=== PATIENT | female | born 1950 | race Caucasian/White ===

== ENCOUNTER 2017-04-28 13:26 | Outpatient (CLI) | payer MEDICARE, BC ==
[~2017-04-28] VITALS: Ht 161.3 cm; Wt 77.3 kg
--- NOTE | ~2017-04-28 | HP ---
PATIENT: DECLAN COHEN MEDICAL RECORD: [id number] ACCOUNT: [id number] LOCATION:CLARE : 51 ADMISSION DATE: 04/28/17 HISTORY AND PHYSICAL EXAMINATION PROBLEM LIST: 1. Unstable angina. 2. Coronary disease. 3. Previous coronary artery bypass grafting surgery. 4. Status post multivessel PTCA and stent. 5. Hypertension. 6. Hyperlipidemia. HISTORY: The patient is well-known to us with a past history of coronary disease, multivessel PTCA and stent in the past as well as coronary artery bypass grafting surgery. She presents with two weeks of increasing chest pain, chest discomfort, angina. She, as well, has a upcoming knee surgery within the next month. She wants to limit her dual antiplatelet therapy to proceed with the knee surgery. PHYSICAL EXAMINATION: HEAD, EYES, EARS, NOSE, AND THROAT: Benign. NECK: Supple. No jugular venous distention. Carotid upstroke plus two bilaterally without bruits. LUNGS: Overall clear to auscultation and percussion. HEART: Regular. Normal S1, normal S2. No S3, no S4. No murmurs. BONES, JOINTS, EXTREMITIES: No clubbing, cyanosis, or edema. IMPRESSION AND PLAN: Unstable angina, most likely she has recurrent hemodynamically significant coronary disease. We will proceed with coronary angiography. Further care dependent upon findings of angiography. THELMA MORRISON MD CC: [id number] DICTATION DATE: 04/29/171117 PLANER MILL GRADER: TC 05/03/17 1115 DEP CLI 04/29/17 [address] [id number] [place] [address]
--- NOTE | ~2017-04-28 | PRO ---
PATIENT:DECLAN COHEN MEDICAL RECORD: [id number] : 52 LOCATION:D.OPS ADMISSION DATE: 04/28/17 PROCEDURE PERFORMED BY: THELMA MORRISON MD PROCEDURES: 1. PTCA and stent of the vein graft to the left circumflex. 2. Left heart catheterization. 3. Selective coronary angiography. 4. Left ventriculogram. 5. Vein graft angiography. 6. Intravascular ultrasound. INDICATIONS: Unstable angina. PROCEDURE IN DETAIL: After informed consent was obtained and after detailed Explanation of risks, benefits as well as alternative therapies, the patient Elected to proceed with angiogram and angioplasty. The right femoral area was Prepped and draped in normal sterile fashion. The right femoral artery was Cannulated via modified Seldinger technique with placement of 6-Yi sheath. All catheters exchanged through this sheath. FINDINGS: Selective coronary angiography: 1. Left main showed no significant angiographic disease. 2. Left anterior descending artery has previously placed stents with no significant in-stent restenosis. No disease ___ of the LAD or its branches. 3. Left circumflex is totally occluded in the proximal vessels. 4. Right coronary artery is widely patent. 5. Vein graft to the left circumflex is patent however, there is greater than 80% stenosis in the midshaft confirmed by intravascular ultrasound. PTCA STENT OF THE LEFT CIRCUMFLEX: The stent used was a 4.0 x 14 millimeter BioFreedom stent, this was a 4.0 vessel. The lesion was 10 millimeters long and there was SIN grade 3 flow before and after the intervention, 0% residual stenosis after the intervention. OVERALL IMPRESSION: Successful PTCA and stenting of the vein graft to the left circumflex going from 80% initial stenosis to 0% residual stenosis. THELMA MORRISON MD CC: [id number] DICTATION DATE: 04/30/171818 STORE PROMOTER: TC 05/03/171818 DEP CLI 04/29/17 [place] [id number]
--- NOTE | ~2017-04-28 | HEMODYNAMI ---
PATIENT:DECLAN COHEN MEDICAL RECORD: [id number] : 52 LOCATION:[facility] D.2115 ADMISSION DATE: 04/28/17 Generatedon:04/29/20179:24 Patient name: DECLAN COHEN Patient #: [id number] SSN: : 1950 Date of study: 04/29/2017 Page: Of Hemodynamic Procedure Report Patient Data Patient Demographics Procedure consent was obtained First Name: DECLAN Gender: Female Last Name: NOEL : 1950 Middle Initial: KATIA Age: 66 year(s) Patient #: [id number] Race: Unknown Additional ID: [id number] Contact details Address: [address] [place] [address] State: [place] City: [place] Zip code: [address] Past Medical History Allergies Allergen Reaction Date Comments Reported Other allergy 04/29/2017 Tetanus, Ambien Admission Admission Data Admission Date: 04/28/2017 Admission Time: 13:26 Room #: D.[facility] Height (in.): 63 BSA: 1.8 (m2) Height (cm.): 160.02 BMI: 30.07 (kg/m2) Weight (lbs.): 169.76 Weight (kg.): 77 Procedure Procedure Types Cath Procedure Diagnostic Procedure C [facility] w/Coronaries w/Grafts FFR/IVUS Intra-Coronary IVUS Initial PCI Procedure Coronary Stent Initial Miscellaneous Procedures Moderate Sedation up to 15 minutes Procedure Description Procedure Date Procedure Date: 04/29/2017 Procedure Start Time: 8:57 Procedure End Time: 9:24 Procedure Staff Name Function Reuben Fan MD Performing Physician Charlotte Reynolds RN Nurse Sana Kessler RT Monitor Clayton Mcneal RT Scrub Procedure Data Cath Procedure Fluoroscopy Diagnostic fluoroscopy Total fluoroscopy Time: 6.5 time: 6.5 min min Diagnostic fluoroscopy Total fluoroscopy dose: 537 dose: 537 mGy mGy Contrast Material Contrast Material Type Amount (ml) Isovue 300 81 Entry Location Entry Primary Successful Side Size Upsize Upsize Entry Closure Succes sful Closure Location (Fr) 1 (Fr) 2 (Fr) Remarks Device Remarks Femoral Right 5 Fr 6 Fr Exoseal artery Short Estimated blood loss: 10 ml Diagnostic catheters Device Type Used For End Catheter Placement Cordis 5Fr Pigtail Ventriculography Catheter (MP) Cordis 5Fr JL 4.0 Procedure Catheter (MP) Diagnostic Infinity 5Fr Procedure AR 2 MOD catheter Cordis 5Fr 3DRC Catheter Procedure (MP) Procedure Complications No complications Procedure Medications Medication Administration Route Dosage Oxygen NC 2 l/min Lidocaine 2% added to field 20 Heparin Flush Bag added to field 2 bags (1000units/500ml NS) 0.9% NaCl I.V. 100 ml/hr Versed I.V. 1 mg Fentanyl I.V. 50 mcg Heparin Bolus I.V. 4000 units Versed I.V. 1 mg Fentanyl I.V. 50 mcg Versed I.V. 0.5 mg Fentanyl I.V. 25 mcg Integrilin (Bolus I.V. 6.8 ml 2mg/ml) Plavix P.O. 600 mg Hemodynamics Rest BSA: 1.8 (m2) O2 Consumption: Estimated: 166.14 (ml/min) O2 Consumption indexed: Estimated:92.3 (ml/min/m) Heart Rate: 67 (bpm) Snapshots Pre Cath Intra NCS Post Cath Vital Signs Time Heart Resp SPO2 etCO2 IQ0twfl NIBP (mmHg) Rhythm Pain Sedation Rate (ipm) (%) (mmHg) (mmHg) Status Level (bpm) 8:48:17 67 17 100 0 0 169/81(146) NSR 0 (11) 10(A) , No pain 8:52:42 73 19 98 0 0 155/83(126) NSR 0 (11) 10(A) , No pain 8:57:00 75 17 96 0 0 140/80(120) NSR 0 (11) 9(A) , No pain 9:02:17 87 19 99 0 0 165/87(120) NSR 0 (11) 9(A) , No pain 9:07:43 85 18 99 0 0 147/72(112) NSR 0 (11) 9(A) , No pain 9:11:53 88 18 96 0 0 141/87(132) NSR 0 (11) 9(A) , No pain 9:16:13 88 17 96 0 0 150/76(124) NSR 0 (11) 9(A) , No pain 9:20:33 92 19 98 0 0 159/86(112) NSR 0 (11) 10(A) , No pain Medications Time Medication Route Dose Verified Delivered Reason Notes Effectiveness by by 8:47:11 Oxygen NC 2 Reuben Porter used for l/min Mita Reynolds RN procedure 8:47:18 Lidocaine 2% added 20ml Reubenannette Alexis for local to vial Mita Fan MD anesthetic field 8:47:26 Heparin Flush added 2 Reuben Reuben used for Bag to bags Mita Fan MD procedure (1000units/500ml field NS) 8:47:35 0.9% NaCl I.V. 100 Reuben Porter Per physician ml/hr Mita Reynolds RN 8:56:26 Versed I.V. 1 mg Reuben Porter for sedation Mita Reynolds RN 8:56:32 Fentanyl I.V. 50 Reuben Porter for sedation mcg Mita Reynolds RN 9:00:10 Versed I.V. 1 mg Reuben Porter for sedation Mita Reynolds RN 9:00:14 Fentanyl I.V. 50 Reuben Porter for sedation mcg Mita Reynolds RN 9:05:34 Heparin Bolus I.V. 4000 Reuben Porter for verifie d units Mita Reynolds RN anticoagulation with dr fan 9:07:39 Versed I.V. 0.5 Reuben Porter for sedation mg Mita Reynolds RN 9:07:44 Fentanyl I.V. 25 Reuben Porter for sedation mcg Mita Reynolds RN 9:10:51 Integrilin I.V. 6.8 Reuben Porter for wasted (Bolus 2mg/ml) ml Mita Reynolds RN antiplatelet 3.2 ml therapy of vial 9:22:54 Plavix P.O. 600 Reuben Porter for mg Mita Reynolds RN antiplatelet therapy Procedure Log Time Note 8:32:56 Charlotte Reynolds RN sent for patient. Start room use. 8:32:57 Time tracking: Regular hours 8:33:01 Plan of Care:Hemodynamics will remain stable., Cardiac rhythm will remain stable., Comfort level will be maintained., Respiratory function will remain adequate., Patient/ family verbilizes understanding of procedure., Procedure tolerated without complication., Recovers from procedure without complications.. 8:40:41 Patient received from Pre/Post Procedure Room to CCL 1 Alert and oriented. Tansferred to table in Supine position. 8:46:31 Patient Weight : 169.76 kg 8:46:55 Vital chart was started 8:46:59 Patient Height : 63 cm 8:47:11 Oxygen 2 l/min NC was administered by Charlotte Reynolds RN; used for procedure; 8:47:18 Lidocaine 2% 20ml vial added to field was administered by Reuben Fan MD; for local anesthetic; 8:47:26 Heparin Flush Bag (1000units/500ml NS) 2 bags added to field was administered by Reuben Fan MD; used for procedure; 8:47:35 0.9% NaCl 100 ml/hr I.V. was administered by Charlotte Reynolds RN; Per physician; 8:49:10 Warm blankets applied, and pankaj hugger turned on for patient comfort. 8:49:10 Correct patient and procedure confirmed by team. 8:49:12 Signed procedure consent form obtained from patient. 8:49:13 ECG and BP/O2 sat monitors applied to patient. 8:49:15 Baseline sample Acquired. 8:49:19 Full Disclosure recording started 8:49:36 H&P Date Dictated: 04/28/2017 Within 30 days and on chart.. 8:49:39 Pre-procedure instructions explained to patient. 8:49:42 Family in waiting room. 8:49:45 Patient NPO since Midnight. 8:50:32 Patient allergic to Other allergyTetanus, Ambien 8:50:37 Is the patient allergic to Iodine/contrast media? No. 8:51:20 Is patient on blood thinner?Yes 8:51:25 ACC The patient was administered the following blood thiners within the last 24 hours: ACCAspirin 8:51:27 Patient diabetic? No. 8:51:32 Snore? Yes 8:51:34 Sleep apnea? No 8:51:44 Dentures? Yes tight 8:51:50 Patient pain scale 0/10 ?. 8:52:07 IV patent on arrival in right hand with 0.9% NaCl at O. 8:55:27 Zero performed for pressure channel P1 8:55:54 Lab results completed and on chart. 8:55:58 Right groin area was prepped with chlora-prep and draped in sterile fashion 8:56:00 Sharps counted by scrub and verified by RHennaN. 8:56:02 Physician paged 8:56:03 Physician arrived 8:56:04 --------ALL STOP TIME OUT------ 8:56:04 Final Timeout: patient, procedure, and site verified with staff and physician. All members of the team are in agreement. 8:56:06 Right groin site verified by team. 8:56:09 Physical assessment completed. ASA score P 2 - A patient with mild systemic disease as per Reuben Fan MD. 8:56:13 Sedation plan: IV Moderate Sedation Versed, Fentanyl 8:56:26 Versed 1 mg I.V. was administered by Charlotte Reynolds RN; for sedation; 8:56:32 Fentanyl 50 mcg I.V. was administered by Charlotte Reynolds RN; for sedation; 8:57:07 dication down no H&P on chart 8:57:14 Use device set Femoral Dx 8:57:16 Acist Syringe opened to sterile field. 8:57:16 Bag Decanter opened to sterile field. 8:57:17 Medline Cath Pack opened to sterile field. 8:57:17 Terumo 5Fr [place] Sheath opened to sterile field. 8:57:17 St Terence 260cm J .035 wire opened to sterile field. 8:57:19 Acist Hand Control opened to sterile field. 8:57:19 Acist Manifold opened to sterile field. 8:57:19 Diagnostic Infinity 5Fr Multipack catheter opened to sterile field. 8:57:20 Tegaderm 4 x 4 opened to sterile field. 8:57:23 Procedure started. 8:57:36 A 5 Fr sheath was inserted into the Right Femoral artery 8:57:48 A Cordis 5Fr Pigtail Catheter (MP) was advanced over the wire and used for Ventriculography. 8:57:51 LV gram done using SALES 8:57:58 EF : 55 % 8:57:59 Catheter removed. 8:58:08 A Cordis 5Fr JL 4.0 Catheter (MP) was advanced over the wire and used for Procedure. 8:58:17 LCA angiography performed. 8:58:37 Catheter removed. 8:59:17 A Diagnostic Infinity 5Fr AR 2 MOD catheter was advanced over the wire and used for Procedure. 8:59:49 SVG angiography performed. 8:59:57 SVG to Circ angiography performed. 9:00:10 Versed 1 mg I.V. was administered by Charlotte Reynolds RN; for sedation; 9:00:14 Fentanyl 50 mcg I.V. was administered by Charlotte Reynolds RN; for sedation; 9:03:12 Catheter removed. 9:03:18 A Cordis 5Fr 3DRC Catheter () was advanced over the wire and used for Procedure. 9:03:23 RCA angiography performed. 9:03:28 Catheter removed. 9:04:06 Proceeding to intervention. 9:04:21 Sheath upsized to a 6 Fr Short. 9:04:50 ACC PCI Site: [facility] has ?% stenosis. 9:05:01 6 Fr AR 2 guide catheter was inserted over the wire 9:05:06 Whisper wire advanced. 9:05:12 IVUS catheter advanced over wire. 9:05:34 Heparin Bolus 4000 units I.V. was administered by Charlotte Reynolds RN; for anticoagulation; verified with dr fan 9:07:39 Versed 0.5 mg I.V. was administered by Charlotte Reynolds RN; for sedation; 9:07:44 Fentanyl 25 mcg I.V. was administered by Charlotte Reynolds RN; for sedation; 9:08:11 IVUS pass to Circ lesion performed. 9:08:44 Medtronic Launcher 6Fr AR 2.0 guide catheter opened to sterile field. 9:08:44 Trujillo Whisper J 300cm 0.014 guide wire opened to sterile field. 9:08:45 Dragonfly List BasixCompak Inflation Kit opened to sterile field. 9:08:46 Lysite [place] IVUS Catheter opened to sterile field. 9:10:51 Integrilin (Bolus 2mg/ml) 6.8 ml I.V. was administered by Charlotte Reynolds RN; for antiplatelet therapy; wasted 3.2 ml of vial 9:13:01 Inflation number: 1 A NC Euphora 4.0 x 12 balloon was prepped and advanced across the Mid CX, then inflated to 17 MAURICIO for 0:10 (min:sec). 9:13:51 Balloon removed over the wire. 9:15:29 Inflation Number: 2 A Biofreedom 4.0 X 8 stent (No Cost Implant) was prepped and advanced across the Mid CX. The stent was deployed at 17 MAURICIO for 0:10 (min:sec). 9:16:35 Stent catheter was removed intact over wire. 9:16:55 IVUS catheter advanced over wire. 9:17:30 IVUS pass to Circ lesion performed. 9:17:31 IVUS catheter removed over wire. 9:17:40 Cordis 6Fr Exoseal opened to sterile field. 9:19:32 Sheath removed intact; hemostasis achieved with Exoseal to the Right Femoral artery. 9:19:35 Procedure ended.(Physican Out) 9:19:48 Fluoroscopy time 06.50 minutes. 9:19:57 Flurop Dose total: 537 9:19:57 Fluoroscopy dose: 537 mGy 9:20:02 Contrast amount:Isovue 300 81ml. 9:20:04 Sharps counted by scrub and verified by R.N. 9:20:10 Insertion/operative site no bleeding no hematoma. 9:20:15 Post-op/insertion site Right Femoral artery dressed using a 4 x 4 and Tegaderm. 9:20:20 Post right femoral artery:stable 9:20:22 Post Procedure Pulses reassessed and unchanged 9:20:34 Post-procedure physical assessment completed. ASA score P 2 - A patient with mild systemic disease as per Reuben Fan MD. 9:20:48 Post procedure rhythm: unchanged. 9:20:52 Estimated blood loss: 10 ml 9:20:56 Post procedure instruction explained to patient.Patient verbalizes understanding. 9:21:24 Procedure type changed to Cath procedure, Diagnostic procedure, LHC, LHC w/Coronaries w/Grafts, FFR/IVUS, Intra-Coronary IVUS Initial, PCI procedure, Coronary Stent Initial, Miscellaneous Procedures, Moderate Sedation up to 15 minutes 9:21:25 Procedure and supply charges have been captured, reviewed, submitted and are correct. 9:22:54 Plavix 600 mg P.O. was administered by Charlotte Reynolds RN; for antiplatelet therapy; 9:23:40 Procedure Complication : No complications 9:23:42 Vital chart was stopped 9:23:55 Patient transfered to [facility] with Bed. 9:24:06 Procedure ended. 9:24:06 Full Disclosure recording stopped 9:24:09 End room use (Document Last) 9:24:15 ACC-PCI Only Patient was given prescriptions, or instructed by Reuben Fan MD to start/continue the following medications upon discharge: Plavix Intervention Summary Intervention Notes Time ActionType Lesion and Equipment Action# Pressure Duration Attributes Used 9:13:01 Inflate Mid CX NC Euphora 1 17 00:10 balloon 4.0 x 12 balloon 9:15:29 Place stent Mid CX Biofreedom 2 17 00:10 4.0 X 8 stent (No Cost Implant) Device Usage Item Name Manufacture Quantity Catalog Hospital Part Current Minimal Lot# / Number Charge Number Stock Stock Serial# Code Acist Acist 1 01144 [id number] 313154 084416 20 Syringe Medical Systems Inc Bag Microtek 1 2002S 175269 27151 971022 5 Decanter Medical Inc. Medline Cardinal 1 [id number] 040720 68140 270146 5 Cath Pack Health Terumo 5Fr Terumo 1 [id number] 711437 089520 072740 [address] Te[address] St Terence 1 084481 519423 625101 561467 30 260cm J .035 wire Acist Hand Acist 1 47827 263975 447061 324623 5 Snaptrip Medical Systems Inc Acist Acist 1 66820 707921 321050 409424 5 SocialDial Medical Systems Inc Diagnostic Cardinal 1 [id number] 761187 17811 365648 30 Infinity Health 5Fr Multipack catheter Tegaderm 4 3M 1 1626W 278812 950652 513931 5 x 4 Cordis 5Fr Cardinal 1 030220 5 Pigtail Health Catheter (MP) Cordis 5Fr Cardinal 1 093285 5 JL 4.0 Health Catheter (MP) Diagnostic Cardinal 1 [id number] 443983 265958 907473 20 Infinity Health 5Fr AR 2 MOD catheter Cordis 5Fr Cardinal 1 732868 5 3DRC Health Catheter (MP) Medtronic Medtronic 1 [id number] 019345 37112 184542 1 Launcher 6Fr AR 2.0 guide catheter Trujillo Trujillo 1 [id number] 014807 900080 276106 5 Whisper J Vascular 300cm 0.014 guide wire Merit Merit 1 [id number] 034525 686241 327740 15 BasixCompak Medical Inflation Kit Lysite Lysite 1 [id number] 243289 777915 131274 8 [place] IVUS Catheter NC Euphora Medtronic 1 [id number] 050617 832334 471349 1 [id number] 4.0 x 12 balloon Biofreedom Biosensors 1 [facility]2-4008 054216 238169 5 [id number] 4.0 X 8 [place] SA stent (No Cost Implant) Cordis 6Fr Cardinal 1 [id number] 868082 615868 577230 10 [facility] [place] Signature Audit Leon Stage Time Signature Unsigned Intra-Procedure 04/29/2017 Sana Kessler 9:24:55 AM RT(R) Signatures Monitor : Sana Kessler Signature : RT Date : Time : [id number] [place] [address]
[2017-04-28 13:54] LABS: BASOPHILS 0.3 % (0-2); EOSINOPHILS 3.2 % (0-7); HEMATOCRIT 44.5 % (36.0-48.0); HEMOGLOBIN 15.1 g/dL (12-16); IMMATURE GRANULOCYTES 0.3 % (0-5); LYMPHOCYTES 31.5 % (15-50); MCH 33.2 pg (26.0-34.0); MCHC 33.9 g/dL (31.0-37.0); MCV 97.8 fL (80.0-100.0); MEAN PLATELET VOLUME 8.9 fL (7.4-10.4); MONOCYTES 10.4 % (2-11); NEUTROPHILS 54.3 % (40-80); PLATELET COUNT 275 10x3/uL (130-400); RBC 4.55 10x6/uL (4.00-5.40); RDW 13.9 % (11.5-14.5); WBC 6.8 10x3/uL (4.8-10.8)
[2017-04-28 14:26] LABS: ALBUMIN 3.9 g/dL (3.4-5.0); ALKALINE PHOSPHATASE 113 U/L (46-116); ALT (SGPT) 37 U/L (10-68); BILIRUBIN - TOTAL 0.62 mg/dL (0.2-1.3); CALC OSMOLALITY 276 mosm/kg (275-300); CALCIUM 9.1 mg/dL (8.5-10.1); CARBON DIOXIDE 25.6 mmol/L (21.0-32.0); CHLORIDE - SERUM 104 mmol/L (98-107); CREATININE - SERUM 0.8 mg/dL (0.6-1.3); GLUCOSE 113 mg/dL (74-106); POTASSIUM - SERUM 3.3 mmol/L (3.5-5.1); PROTEIN - SERUM 7.5 g/dL (6.4-8.2); SODIUM 138 mmol/L (136-145); UREA NITROGEN 13 mg/dL (7-18); eGFR NON AFRICAN AMERICAN 76 mL/min (90-120)
[2017-04-28 14:38] LABS: CHOL - HDL RATIO 3.2 ratio (2.3-4.1); CHOLESTEROL, TOTAL 153 mg/dL (0-200); CKMB 0.6 U/L (0.0-3.6); CREATINE KINASE 83 UL (21-215); HDL CHOLESTEROL 48 mg/dL (32-96); LDL CHOLESTEROL 83 mg/dL (0-100); LDL-HDL RATIO 1.7 ratio (1.5-3.5); TRIGLYCERIDE 113 mg/dL (30-200); TROPONIN-I < 0.017 ng/mL (0.000-0.060)
--- NOTE | 2017-04-28 19:15 | NUR ---
ADMIT TO ROOM 2114 FROM ER. COMING BY WHEELCHAIR. ALERT/ORIENTED. ADMISSION HISTORY AND ASSESSMENT INITIATED AND HOME MEDS REVIEWED.
[2017-04-28 21:25] VITALS: BP 135/63
[2017-04-29 01:00] VITALS: BP 128/60
[2017-04-29 01:30] VITALS: BP 135/63; Ht 161.3 cm; Wt 77.3 kg
[2017-04-29 04:00] VITALS: BP 162/71
[2017-04-29] MEDS ORDERED: HYDROCODONE-APA1 TAB PO (07:10)
[2017-04-29] MEDS ORDERED: LIPITOR40 MG PO (07:10)
[2017-04-29] MEDS ORDERED: ASPIRIN81 MG PO (07:11)
[2017-04-29] MEDS ORDERED: ELIQUIS5 MG PO (07:11)
[2017-04-29] MEDS ORDERED: PROTONIX40 MG PO (07:12)
[2017-04-29] MEDS ORDERED: LYRICA50 MG PO (07:13)
[2017-04-29] MEDS ORDERED: NICODERM C1 PATCH .3 TRANSDERM (07:13)
--- NOTE | 2017-04-29 07:30 | NUR ---
RECEIVED PT IN BED AAOX4 RESP UNLABORED DENIES ANY NEEDS OR DISCOMFORT AT THIS TIME
[2017-04-29 08:00] VITALS: BP 137/70
--- NOTE | 2017-04-29 08:35 | NUR ---
PT TO INSURANCE DEFENSE PARALEGAL VIA BED IN STABLE CONDITION
--- NOTE | 2017-04-29 09:40 | NUR ---
RECEIVED PT BACK TO ROOM VIA BED IN STABLE CONDITION VSS RT GROIN DRSG C/D/I AREA SOFT NO S/S OF INFECTION PPPX4
--- NOTE | 2017-04-29 10:07 | NUR ---
CALLED PLAVIX 75 MG #30 WITH NO REFILLS TO [facility] [address] PER FAMILY REQUEST.
[2017-04-29 12:00] VITALS: BP 148/66
[2017-04-29] MEDS ORDERED: PLAVIX75 MG PO (13:09)
--- NOTE | 2017-04-29 15:01 | NUR ---
REVIEWED DISCHARGE INSTRUCTIONS PT STATES UNDERSTANDING COPY GIVEN IV DCD TO LAC WITH 20 GA IV CATH INTACT SITE FREE OF REDNESS OR EDEMA PT LEFT UNIT IN STABLE CONDITION VIA W/C WITH ALL PERSONAL BELONGINGS
== END 2017-04-29 15:01 | disposition home or self-care (01) ==
LOC: D.M2 13:26 → D.ER 13:26 → D.OPS 13:26 → EDSTATUS 17:11 → D.SDCHOLD 17:12 → D.M2 18:03 → D.OPS 04-29 15:01
PROVIDERS: Emergency Medicine
DX: I25.110 Atherosclerotic heart disease of native coronary artery with unstable angina pectoris (principal); Z95.5 Presence of coronary angioplasty implant and graft; I10 Essential (primary) hypertension; E78.5 Hyperlipidemia, unspecified; Z00.6 Encounter for examination for normal comparison and control in clinical research program; I45.10 Unspecified right bundle-branch block; F17.200 Nicotine dependence, unspecified, uncomplicated; Z01.812 Encounter for preprocedural laboratory examination
CPT/HCPCS: 92978; 93459; C9604

== ENCOUNTER 2017-07-29 16:04 | Observation (INO) | payer MEDICARE, BC ==
[~2017-07-29] VITALS: Ht 161.3 cm; Wt 75.9 kg
--- NOTE | ~2017-07-29 | CN ---
PATIENT NAME:DECLAN DAVIS MEDICAL RECORD: [id number] : 52 LOCATION:D. D.2116 ADMIT DATE: 07/29/17 ACCOUNT: [id number] CONSULTING PHYSICIAN: THELMA MORRISON MD REFERRING PHYSICIAN: LEISA CARR MD DATE OF CONSULTATION: 07/30/2017 DIAGNOSES: 1. Angina. 2. Coronary artery disease. 3. Previous multivessel PTCA and stent. 4. Smoking history. 5. GERD. HISTORY: Ms. Davis presents with anginal symptomatology. Troponin is normal. EKG is with ST depression and T wave inversions anteriorly. Status post PTCA and stent in the past, the last being a number of months ago. Her angina has been present for 2 days in an escalating fashion, just like that of her previous angina with radiation to her neck and jaw. REVIEW OF SYSTEMS: The patient reports easy bruising but reports no swollen glands. The patient reports no fever, no night sweats, no significant weight gain, no significant weight loss. No significant exercise tolerance. The patient reports no dry eyes, no irritation, no vision change. Patient reports no difficulty hearing and no ear pain. Patient reports no frequent nose bleeds or nose and sinus problems. Patient reports on arm pain on exertion. No shortness of breath while lying down. No history of heart murmur. Patient reports no cough, no wheezing or coughing up blood. Patient reports no abdominal pain, no vomiting. Normal appetite. No diarrhea and not vomiting blood. No nausea and no constipation. Patient reports no incontinence. No difficulty urinating. No hematuria. No increased frequency. Patient reports no muscle aches. No weakness, no arthralgias, no back pain. No swelling of the extremities. Patient reports no abnormal mole, no jaundice, no rashes. Reports no loss of consciousness. No weakness and no numbness. No seizures, dizziness, or headaches. The patient reports no depression, no sleep disturbance, feeling safe in a relationship and no alcohol abuse. Patient reports on fatigue. Reports no runny nose or sinus pressure. No itching, no hives, and no frequent sneezing. PHYSICAL EXAMINATION: GENERAL APPEARANCE: Well-nourished, well-developed, appears stated age. Level of distress, comfortable. PSYCHIATRIC: Mental status, alert, normal affect. Orientation, oriented to time, place and person. EYES: Lids and conjunctiva, noninjected. No discharge, no pallor. ENT: Lips, teeth, gums, normal dentition. Oropharynx, no cyanosis, no pallor. NECK: Carotid arteries, bilateral normal upstroke, no bruits, no thrills. JUGULAR VEINS: No jugular venous pressure or distention. CERVICAL LYMPH NODES: Nontender, nonenlarged. THYROID: Not enlarged. Nontender. No nodules. LUNGS: Respiratory effort, unlabored. CHEST: Normal curvature. No thoracic deformity. No chest wall tenderness. Percussion, resonant. Auscultation, clear. No wheezes, no rales, no rhonchi. CARDIOVASCULAR: Precordial exam, nondisplaced. No heaves or pericardial thrills. Rate and rhythm, regular. Heart sounds, normal S1, normal S2. No S3, CONSULT REPORT [id number] DECLAN DAVIS no gallop, no rub. Systolic murmur, not heard. Diastolic murmur, not heard. EXTREMITIES: No cyanosis, no edema. Peripheral pulses, full and equal in all extremities, except as noted. No bruits appreciated. ABDOMEN: Soft, nondistended. Normal aorta. No bruit. Nontender. No masses. Liver, nontender, no hepatomegaly. Spleen, nontender, no splenomegaly. MUSCULOSKELETAL: No joint tenderness. No joint swelling. No erythema. NEUROLOGICAL: Normal gait, normal strength, normal tone. SKIN: Warm and dry. OVERALL IMPRESSION: Angina in an unstable escalating fashion, most likely she has recurrent hemodynamically significant coronary artery disease. We will proceed with coronary angiography. Further care depends upon findings of angiography. TRANSINT:[id number] Voice Confirmation ID: [id number] DOCUMENT ID: [id number] THELMA MORRISON MD CC: [id number] DICTATION DATE: 07/30/17 1146 FARM MACHINERY ENGINE MECHANIC: 07/30/17 1425 ADM IN [facility] [address] [place] [address]
--- NOTE | ~2017-07-29 | OP ---
PATIENT NAME: DECLAN COHEN MEDICAL RECORD: [id number] :52 LOCATION:D.M2 D.2116 ADMISSION DATE:07/29/17 SURGEON: THELMA MORRISON MD DATE OF OPERATION: 07/30/2017 PROCEDURES: 1. PTCA and stent, LAD. 2. Left heart catheterization. 3. Selective coronary angiography. 4. Vein graft angiography. 5. Left ventriculogram. INDICATION: Angina and coronary artery disease. PROCEDURE IN DETAIL: After informed consent was obtained and after detailed explanation of risks and benefits as well as alternative therapies, the patient elected to proceed with angiogram and angioplasty. The right femoral area was prepped and draped in normal sterile fashion. The right femoral artery was cannulated via modified Seldinger technique with placement of a 6-Latvian sheath. All catheters were exchanged through this sheath. FINDINGS: Left ventriculogram was performed in standard 30-degree SALES view, reveals good cardiac wall motion throughout all segments. Overall ejection fraction is estimated at 60%. SELECTIVE CORONARY ANGIOGRAPHY: 1. Left main shows no significant angiographic disease. 2. Left anterior descending has previously placed stent. There is 90% in-stent restenosis. 3. SANDOVAL to LAD is atretic and nonfunctional. 4. Left circumflex is totally occluded. 5. Vein graft to circumflex is widely patent. Distal circumflex is moderately diffusely diseased but widely patent. 6. Right coronary does have pressure damping at the ostium, but this does not appear to be critical. It is a relatively small vessel. PTCA AND STENT OF THE LAD: The stent used was 3.5 x 34-mm [place]. Result was 0% residual stenosis. OVERALL IMPRESSION: Successful PTCA and stent of the LAD, going from 90% in-stent restenosis to 0% residual stenosis. TRANSINT:[id number] Voice Confirmation ID: [id number] DOCUMENT ID: [id number] THELMA MORRISON MD CC: [id number] DICTATION DATE: 07/30/17 161 SCANNING TECH: 07/30/17 1930 ADM IN [place] [id number] [place] [address]
--- NOTE | ~2017-07-29 | HEMODYNAMI ---
PATIENT:DECLAN COHEN MEDICAL RECORD: [id number] : 52 [facility] ADMISSION DATE: 07/29/17 Generatedon:07/30/201716:13 Patient name: DECLAN COHEN Patient #: [id number] SSN: : 1950 Date of study: 07/30/2017 Page: Of Hemodynamic Procedure Report Patient Data Patient Demographics Procedure consent was obtained First Name: DECLAN Gender: Female Last Name: NOEL : 1950 Middle Initial: KATIA Age: 67 year(s) Patient #: [id number] Race: Unknown Additional ID: [id number] Contact details [address]: [address] [place] [address] State: [place] City: [place] Zip code: [address] Past Medical History Allergies Allergen Reaction Date Comments Reported Other allergy 07/30/2017 Tetanus, Vaccine and Toxoid, Vimova, Ambien. Admission Admission Data Admission Date: 07/29/2017 Admission Time: 18:15 Admit Source: Emergency department Room #: D.2116 Lab Results Lab Result Date: 07/29/2017 Lab Result Time: 16:30 Biochemistry Name Units Result Min Max BUN mg/dl 16 --(---*)-- 7 18 Creatinine mg/dl 0.8 --(-*--)-- 0.6 1.3 CBC Name Units Result Min Max Hematocrit % 43.1 --(*---)-- 42 54 Hemoglobin g/dl 14.8 --(-*--)-- 13.5 17.5 Procedure Procedure Types Cath Procedure Diagnostic Procedure [facility] w/Coronaries PCI Procedure Coronary Stent Initial Miscellaneous Procedures Moderate Sedation up to 15 minutes Procedure Description Procedure Date Procedure Date: 07/30/2017 Procedure Start Time: 15:53 Procedure End Time: 16:13 Procedure Staff Name Function Reuben Fan MD Performing Physician Kristin Rowe RT Scrub Charlotte Reynolds RN Nurse Clayton Mcneal RT Railroad Signal Technician Zane Riggins RT Monitor Procedure Data Cath Procedure Fluoroscopy Diagnostic fluoroscopy Total fluoroscopy Time: 5.8 time: 5.8 min min Diagnostic fluoroscopy Total fluoroscopy dose: 515 dose: 515 mGy mGy Contrast Material Contrast Material Type Amount (ml) Isovue 300 70 Entry Location Entry Primary Successful Side Size Upsize Upsize Entry Closure Succes sful Closure Location (Fr) 1 (Fr) 2 (Fr) Remarks Device Remarks Femoral Right 5 Fr 6 Fr Exoseal artery Short Estimated blood loss: 10 ml Diagnostic catheters Device Type Used For End Catheter Placement Cordis 5Fr Pigtail Procedure Catheter (MP) Cordis 5Fr JL 4.0 Procedure Catheter (MP) Diagnostic Infinity 5Fr Procedure AR 2 MOD catheter Procedure Complications No complications Procedure Medications Medication Administration Route Dosage Oxygen NC 2 l/min Lidocaine 2% added to field 20 Heparin Flush Bag added to field 2 bags (1000units/500ml NS) 0.9% NaCl I.V. 100 ml/hr Effient P.O. 10 mg Versed I.V. 1 mg Fentanyl I.V. 50 mcg Versed I.V. 1 mg Fentanyl I.V. 50 mcg Heparin Bolus I.V. 4000 units Versed I.V. 1 mg Fentanyl I.V. 50 mcg Versed I.V. 0.5 mg Fentanyl I.V. 25 mcg Hemodynamics Rest HGB: 14.8 (g/dl) Heart Rate: 62 (bpm) Snapshots Pre Cath Intra NCS Post Cath Vital Signs Time Heart Resp SPO2 NIBP (mmHg) Rhythm Pain Sedation Rate (ipm) (%) Status Level (bpm) 15:21:51 72 15 99 141/74(116) NSR 3 (11) , 10(A) Tolerable 15:26:56 72 14 98 145/78(111) NSR 3 (11) , 10(A) Tolerable 15:31:17 77 16 96 131/80(107) NSR 3 (11) , 10(A) Tolerable 15:35:29 78 15 95 134/79(127) NSR 3 (11) , 10(A) Tolerable 15:39:47 77 18 98 152/77(111) NSR 3 (11) , 10(A) Tolerable 15:44:58 80 16 96 138/76(118) NSR 3 (11) , 10(A) Tolerable 15:49:59 84 17 98 136/83(105) NSR 3 (11) , 10(A) Tolerable 15:54:07 90 16 93 137/90(126) NSR 3 (11) , 9(A) Tolerable 15:58:23 93 16 95 138/79(112) NSR 3 (11) , 9(A) Tolerable 16:02:41 96 15 96 139/76(114) NSR 3 (11) , 9(A) Tolerable 16:06:59 98 16 96 139/78(116) NSR 3 (11) , 9(A) Tolerable 16:11:13 100 17 97 134/76(116) NSR 3 (11) , 10(A) Tolerable Medications Time Medication Route Dose Verified Delivered Reason Notes Effectiveness by by 15:20:59 Effient P.O. 10 mg Reuben Buffie for Mita Reynolds RN antiplatelet therapy 15:28:42 Oxygen NC 2 Reuben Buffie used for l/min Mita Reynolds RN procedure 15:28:48 Lidocaine 2% added 20ml Reuben Reuben for local to vial Mita Fan MD anesthetic field 15:28:54 Heparin Flush added 2 Reuben Reuben used for Bag to bags Mita Fan MD procedure (1000units/500ml field NS) 15:29:03 0.9% NaCl I.V. 100 Reuben Buffie Per physician ml/hr Mita Reynolds RN 15:47:35 Versed I.V. 1 mg Reuben Buffie for sedation Mita Reynolds RN 15:47:42 Fentanyl I.V. 50 Reuben Buffie for sedation mcg Mita Reynolds RN 15:53:09 Versed I.V. 1 mg Reuben Buffie for sedation Mita Reynolds RN 15:53:13 Fentanyl I.V. 50 Reuben Buffie for sedation mcg Mita Reynolds RN 15:59:07 Heparin Bolus I.V. 4000 Reuben Buffie for verifi ed units Mita Reynolds RN anticoagulation with dr fan 16:02:37 Versed I.V. 1 mg Reuben Buffie for sedation Mita Reynolds RN 16:02:41 Fentanyl I.V. 50 Reuben Buffie for sedation mcg Mita Reynolds RN 16:10:53 Versed I.V. 0.5 Reuben Buffie for sedation mg Tauth MD Reynolds RN 16:10:57 Fentanyl I.V. 25 Reuben Porter for sed[place] [facility] [place]ita Reynolds RN Procedure Log Time Note 15:00:38 Clayton Mcneal RT(R) (CV) sent for patient. Start room use. 15:01:15 Informed consent obtained and on chart 15:01:19 Admit Source: Emergency department 15:01:45 Time tracking: Regular hours 15:01:48 Plan of Care:Hemodynamics will remain stable., Cardiac rhythm will remain stable., Comfort level will be maintained., Respiratory function will remain adequate., Patient/ family verbilizes understanding of procedure., Procedure tolerated without complication., Recovers from procedure without complications.. 15:01:56 H&P Date Dictated: 07/29/2017 Within 30 days and on chart.. 15:12:20 Patient received from Med II to CCL 2 Alert and oriented. Tansferred to table in Supine position. 15:12:21 Warm blankets applied, and pankaj hugger turned on for patient comfort. 15:12:21 Correct patient and procedure confirmed by team. 15:12:22 ECG and BP/O2 sat monitors applied to patient. 15:12:23 Pre-procedure instructions explained to patient. 15:12:23 Pre-op teaching completed and patient verbalized understanding. 15:12:27 Family in patients room. 15:12:28 Patient NPO since Midnight. 15:17:18 Patient allergic to Other allergyTetanus, Vaccine and Toxoid, Elvaova Ambien. 15:17:20 Is the patient allergic to Iodine/contrast media? No. 15:17:21 Is patient on blood thinner?Yes 15:17:24 ACC The patient was administered the following blood thiners within the last 24 hours: 15:17:25 Patient diabetic? No. 15:17:27 Previous problem with sedation/anesthesia? No ? 15:17:28 Snore? Yes 15:17:29 Sleep apnea? No 15:17:30 Deviated septum? No 15:17:31 Opens mouth fully? Yes 15:17:31 Sticks out tongue? Yes 15:17:34 Airway obstruction? No ? 15:17:36 Dentures? Yes in tight 15:17:41 Pre procedure: right dorsailis pedis pulse 1+ Palpable, but thready & weak; easily obliterated 15:17:42 Patient pain scale 0/10 ?. 15:18:00 IV patent on arrival in left antecubital with 0.9% NaCl at [facility]. 15:19:54 Lab Result : BUN 16 mg/dl 15::54 Lab Result : Creatinine 0.8 mg/dl 15:19:54 Lab Result : Hemoglobin 14.8 g/dl 15:19:54 Lab Result : Hematocrit 43.1 % 15::56 Lab results completed and on chart. 15:19:58 Right groin area was prepped with chlora-prep and draped in sterile fashion 15::58 Alarms reviewed by R. N. 15:19:59 Sharps counted by scrub and verified by R.N. 15:20:14 Use device set Femoral Dx 15:20:15 Tegaderm 4 x 4 opened to sterile field. 15:20:16 Acist Manifold opened to sterile field. 15:20:16 Acist Hand Control opened to sterile field. 15:20:17 Acist Syringe opened to sterile field. 15:20:18 Bag Decanter opened to sterile field. 15:20:21 Medline Cath Pack opened to sterile field. 15:20:22 Terumo 5Fr [place] Sheath opened to sterile field. 15:20:22 St Terence 260cm J .035 wire opened to sterile field. 15:20:23 Diagnostic Infinity 5Fr Multipack catheter opened to sterile field. 15:20:33 Baseline sample Acquired. 15:20:33 Vital chart was started 15:20:39 Rhythm: sinus rhythm 15:20:41 Full Disclosure recording started 15:20:59 Effient 10 mg P.O. was administered by Charlotte Reynolds RN; for antiplatelet therapy; 15::42 Oxygen 2 l/min NC was administered by Charlotte Reynolds RN; used for procedure; 15:28:48 Lidocaine 2% 20ml vial added to field was administered by Reuben Fan MD; for local anesthetic; 15:28:54 Heparin Flush Bag (1000units/500ml NS) 2 bags added to field was administered by Reuben Fan MD; used for procedure; 15:29:03 0.9% NaCl 100 ml/hr I.V. was administered by Charlotte Reynolds RN; Per physician; 15:35:17 PERCUTANEOUS ENTRY 19GA needle opened to sterile field. 15:35:26 Zero performed for pressure channel P1 15:47:06 Physician arrived 15:47:07 --------ALL STOP TIME OUT------ 15:47:07 Final Timeout: patient, procedure, and site verified with staff and physician. All members of the team are in agreement. 15:47:10 Right groin site verified by team. 15:47:12 Physical assessment completed. ASA score P 2 - A patient with mild systemic disease as per Reuben Fan MD. 15:47:15 Sedation plan: IV Moderate Sedation Versed, Fentanyl 15:47:35 Versed 1 mg I.V. was administered by Charlotte Reynolds RN; for sedation; 15:47:42 Fentanyl 50 mcg I.V. was administered by Charlotte Reynolds RN; for sedation; 15:53:09 Versed 1 mg I.V. was administered by Charlotte Reynolds RN; for sedation; 15:53:13 Fentanyl 50 mcg I.V. was administered by Charlotte Reynolds RN; for sedation; 15:53:39 Procedure started. 15:53:47 Local anesthetic to right femoral artery with Lidocaine 2% by Reuben Fan MD.INITIAL ACCESS ONLY 15:53:54 A 5 Fr sheath was inserted into the Right Femoral artery 15:54:02 A Cordis 5Fr Pigtail Catheter (MP) was advanced over the wire and used for Procedure. 15:55:40 LV gram done using SALES 15:55:43 Injector settings: Ml/sec: 10, Volume: 20., 15:55:52 EF : 55 % 15:56:02 Catheter exchanged over wire. 15:56:09 A Cordis 5Fr JL 4.0 Catheter (MP) was advanced over the wire and used for Procedure. 15:56:50 LCA angiography performed. 15:57:29 Catheter exchanged over wire. 15:57:54 Yell.ru BasixCompak Inflation Kit opened to sterile field. 15:57:54 [place] Whisper J 300cm 0.014 guide wire opened to sterile field. 15:58:37 A Diagnostic Infinity 5Fr AR 2 MOD catheter was advanced over the wire and used for Procedure. 15:59:04 SVG to Circ angiography performed. 15:59:07 Heparin Bolus 4000 units I.V. was administered by Charlotte Reynolds RN; for anticoagulation; verified with dr fan 15:59:18 RCA angiography performed. 16:00:00 Terumo 6Fr [place] Sheath opened to sterile field. 16:00:05 Sheath upsized to a 6 Fr Short. 16:00:32 Catheter removed. 16:01:17 Cordis 6FR XBLAD 3.5 SH guide catheter opened to sterile field. 16:02:37 Versed 1 mg I.V. was administered by Charlotte Reynolds RN; for sedation; 16:02:41 Fentanyl 50 mcg I.V. was administered by Charlotte Reynolds RN; for sedation; 16:03:26 6 Fr xblad 3.5 sh guide catheter was inserted over the wire 16:03:31 whisper wire advanced. 16:03:40 [place] Whisper J 300cm 0.014 guide wire opened to sterile field. 16:04:41 Wire advanced across lesion. 16:04:47 Inflation number: 1 A Mozec Rx 3.0 x 20 balloon was prepped and advanced across the Prox LAD, then inflated to 17 MAURICIO for 0:10 (min:sec). 16:05:05 Inflation number: 2 The Mozec Rx 3.0 x 20 balloon was reinflated across the Prox LAD, to 17 MAURICIO for 0:10 (min:sec). 16:05:25 Inflation number: 3 The Mozec Rx 3.0 x 20 balloon was reinflated across the Prox LAD, to 17 MAURICIO for 0:10 (min:sec). 16:05:40 Inflation number: 4 The Mozec Rx 3.0 x 20 balloon was reinflated across the Prox LAD, to 21 MAURICIO for 0:10 (min:sec). 16:06:13 Balloon removed over the wire. 16:08:02 Inflation Number: 5 A Mati OTW 3.5 x 34 stent was prepped and advanced across the Prox LAD. The stent was deployed at 15 MAURICIO for 0:10 (min:sec). 16:08:34 Stent catheter was removed intact over wire. 16:08:34 Wire removed. 16:08:35 Guide catheter removed. 16:08:44 Cordis 6Fr Exoseal opened to sterile field. 16:08:55 Sheath removed intact; hemostasis achieved with Exoseal to the Right Femoral artery. 16:09:10 Procedure ended.(Physican Out) 16:10:42 Fluoroscopy time 05.80 minutes. 16:10:46 Flurop Dose total: 515 16:10:46 Fluoroscopy dose: 515 mGy 16:10:49 Contrast amount:Isovue 300 70ml. 16:10:51 Sharps counted by scrub and verified by R.N. 16:10:53 Versed 0.5 mg I.V. was administered by Charlotte Reynolds RN; for sedation; 16:10:54 Insertion/operative site no bleeding no hematoma. 16:10:56 Post-op/insertion site Right Femoral artery dressed using a 4 x 4 and Tegaderm. 16:10:57 Fentanyl 25 mcg I.V. was administered by Charlotte Reynolds RN; for sedation; 16:11:01 Post right femoral artery:stable, soft, clean and dry 16:11:03 Post Procedure Pulses reassessed and unchanged 16:11:05 Post-procedure physical assessment completed. ASA score P 2 - A patient with mild systemic disease as per Reuben Fan MD. 16:11:08 Post procedure rhythm: unchanged. 16:11:11 Estimated blood loss: 10 ml 16:11:12 Post procedure instruction explained to patient.Patient verbalizes understanding. 16:11:12 Patient needs reinforcement of post procedure teaching. 16:11:19 Procedure type changed to Cath procedure, Diagnostic procedure, LHC, LHC w/Coronaries, PCI procedure, Coronary Stent Initial, Miscellaneous Procedures, Moderate Sedation up to 15 minutes 16:12:47 Procedure and supply charges have been captured, reviewed, submitted and are correct. 16:12:50 Procedure Complication : No complications 16:12:52 Vital chart was stopped 16:12:53 See physician's report for complete and final results. 16:12:54 Report given to PCU. 16:12:58 Patient transfered to PCU with Stretcher. 16:13:01 Procedure ended. 16:13:01 Full Disclosure recording stopped 16:13:05 End room use (Document Last) Intervention Summary Intervention Notes Time ActionType Lesion and Equipment Action# Pressure Duration Attributes Used 16:04:47 Inflate Prox LAD Mozec Rx 1 17 00:10 balloon 3.0 x 20 balloon 16:05:05 Reinflate Prox LAD Mozec Rx 2 17 00:10 balloon 3.0 x 20 balloon 16:05:25 Reinflate Prox LAD Mozec Rx 3 17 00:10 balloon 3.0 x 20 balloon 16:05:40 Reinflate Prox LAD Mozec Rx 4 21 00:10 balloon 3.0 x 20 balloon 16:08:[address] stent Prox LAD Mati OTW 5 15 00:10 3.5 x 34 stent Device Usage Item Name Manufacture Quantity Catalog Hospital Part Current Minim al Lot# / Number Charge Number Stock Stock Serial# Code Tegaderm 4 x 3M 1 [id number] [id number] 389101 825235 5 4 Acist Acist 1 28643 105999 612766 257815 5 Ins[employer]ared Systems Fishin' Glue Acist Hand Acist 1 95169 504427 040092 277720 5 Infusion Resource Systems Inc Acist Acist 1 95516 547022 875351 084531 20 Syringe Aha Mobile [employer] Fishin' Glue Bag Decanter Microtek 1 2002S 799225 31569 749518 5 Add2paper. Medline Cath Cardinal 1 [id number] 192307 10659 801076 5 [facility] Terumo 5Fr Terumo 1 [id number] 232493 908725 741353 [address] St Terence 1 379869 126155 982215 926808 30 260cm J .035 wire Diagnostic Cardinal 1 [id number] 163864 25752 734277 30 Infinity 5Fr Health Multipack catheter PERCUTANEOUS [employer] 1 [id number] 123858 143816 5 ENTRY 19GA needle Cordis 5Fr Cardinal 1 369048 5 Pigtail Health Catheter (MP) Cordis 5Fr Cardinal 1 093989 5 JL 4.0 Health Catheter (MP) Merit Merit 1 MN2268 635562 844414 233483 15 BasixCompak Medical Inflation Kit Trujillo Trujillo 2 [id number] 857371 188843 856607 5 Whisper J Vascular 300cm 0.014 guide wire Diagnostic Cardinal 1 [id number] 503616 767749 656274 20 Infinity 5Fr Health AR 2 MOD catheter Cordis 6FR Cardinal 1 [id number] 261524 419039 995105 3 XBLAD 3.5 Health guide catheter Mozec Rx 3.0 Cardinal 1 [id number] 407386 22818 726038 5 UMOA73 x 20 balloon [facility] [place] OTW 3.5 Medtronic 1 [id number] 241088 3099804 667831 5 [id number] x 34 stent Cordis 6Fr Cardinal 1 EX600 807585 335690 295398 10 Exoseal Health Terumo 6Fr [facility] [id number] 122470 431859 817852 40 [place] Sheath Signature [employer] [place] Stage Time Signature Unsigned Intra-Procedure 07/30/2017 Zane Riggins 4:13:47 PM RT(R) Signatures Monitor : Zane Riggins RT Signature : Date : Time : [place] [address] [facility] [address]
[~2017-07-29 16:04] MED LIST: ASPIRIN81 MG PO; ELIQUIS5 MG PO; HYDROCODONE-APA1 TAB PO; LIPITOR40 MG PO; LYRICA50 MG PO; NICODERM C1 PATCH .3 TRANSDERM; PLAVIX75 MG PO; PROTONIX40 MG PO
[2017-07-29 16:39] LABS: BASOPHILS 0.4 % (0-2); EOSINOPHILS 2.3 % (0-7); HEMATOCRIT 43.1 % (36.0-48.0); HEMOGLOBIN 14.8 g/dL (12-16); IMMATURE GRANULOCYTES 0.3 % (0-5); LYMPHOCYTES 27.2 % (15-50); MCH 33.4 pg (26.0-34.0); MCHC 34.3 g/dL (31.0-37.0); MCV 97.3 fL (80.0-100.0); MEAN PLATELET VOLUME 9.1 fL (7.4-10.4); MONOCYTES 10.9 % (2-11); NEUTROPHILS 58.9 % (40-80); PLATELET COUNT 261 10x3/uL (130-400); RBC 4.43 10x6/uL (4.00-5.40); WBC 9.4 10x3/uL (4.8-10.8)
[2017-07-29 17:10] LABS: ALBUMIN 3.4 g/dL (3.4-5.0); ALKALINE PHOSPHATASE 104 U/L (46-116); ALT (SGPT) 31 U/L (10-68); BILIRUBIN - TOTAL 0.22 mg/dL (0.2-1.3); CALC OSMOLALITY 285 mosm/kg (275-300); CALCIUM 8.8 mg/dL (8.5-10.1); CARBON DIOXIDE 26.8 mmol/L (21.0-32.0); CHLORIDE - SERUM 105 mmol/L (98-107); CREATININE - SERUM 0.8 mg/dL (0.6-1.3); POTASSIUM - SERUM 3.7 mmol/L (3.5-5.1); PROTEIN - SERUM 6.5 g/dL (6.4-8.2); SODIUM 141 mmol/L (136-145); UREA NITROGEN 16 mg/dL (7-18); eGFR NON AFRICAN AMERICAN 76 mL/min (90-120)
[2017-07-29 17:15] LABS: GLUCOSE 174 mg/dL (74-106)
[2017-07-29 17:21] LABS: CHOL - HDL RATIO 5.8 ratio (2.3-4.1); CHOLESTEROL, TOTAL 245 mg/dL (0-200); CKMB 0.3 U/L (0.0-3.6); CREATINE KINASE 64 UL (21-215); HDL CHOLESTEROL 42 mg/dL (32-96); LDL CHOLESTEROL 142 mg/dL (0-100); LDL-HDL RATIO 3.4 ratio (1.5-3.5); TRIGLYCERIDE 305 mg/dL (30-200)
[2017-07-29 17:26] LABS: TROPONIN-I < 0.017 ng/mL (0.000-0.060)
--- NOTE | 2017-07-29 20:41 | NUR ---
PT ARRIVED VIA WHEELCHAIR, AWAKE, ALERT, ORIENTED, STATES THE MORPHINE HAS HELPED WITH HER CP. PT DENIES ANY NEEDS AT THIS TIME. WILL CONTINUE TO MONITOR CLOSELY.
[2017-07-29 21:26] VITALS: BP 138/72
[2017-07-29 23:01] VITALS: BP 138/72; Ht 161.3 cm; Wt 75.9 kg
[2017-07-29] MEDS ORDERED: EFFIENT10 MG PO (23:11)
[2017-07-29] MEDS ORDERED: NEXIUM40 MG PO (23:13)
--- NOTE | 2017-07-30 00:38 | NUR ---
PT RESTING COMFORTABLY, DENIES ANY NEEDS. CONTINUE TO MONITOR CLOSELY.
[2017-07-30 08:16] VITALS: BP 112/54
[2017-07-30 11:58] VITALS: BP 129/58
--- NOTE | 2017-07-30 12:20 | NUR ---
CONSENTS SIGNED FOR [facility].
--- NOTE | 2017-07-30 16:37 | NUR ---
BACK FROM CUSTOMER SERVICE REPRESENTATIVE. VS WNL. RIGHT GROIN STABLE WITHOUT BLEEDING OR HEMATOMA NOTED. WILL MONITOR.
[2017-07-30 17:37] VITALS: BP 127/60
--- NOTE | 2017-07-30 19:17 | NUR ---
LYING IN BED WITH EYES CLOSED, RESPIRATIONS EVEN AND UNLABORED ON ROOM AIR. 77 SR ON TELEMETRY. LEFT AC INFUSING NS @ 100. RIGHT GROIN WNL, SMALL BLOOD SPOT ON TEGADERM. NO SWELLING OR BRUISING NOTED, PEDAL PULSE PALPABLE. PLAN OF CARE DISCUSSED WITH SPOUSE. CALL LIGHT IN REACH. WILL CONTINUE TO MONITOR. SEE NURSE ASSESSMEN.T
--- NOTE | 2017-07-30 20:29 | NUR ---
BEDREST UP, IV REMOVED WITH TIP INTACT. TELEMETRY REMOVED. RIGHT GROIN REMAINS UNCHANGED. CALL LIGHT IN REACH. WILL CONTINUE TO MONITOR.
--- NOTE | 2017-07-30 20:43 | NUR ---
WHEELED OUT TO CAR.
== END 2017-07-30 20:44 | disposition home or self-care (01) ==
LOC: D.ER 16:04 → D.M2 18:15 → OBSVTIME 18:15 → D.M2 07-30 16:35
PROVIDERS: Emergency Medicine; ADMIT Family Medicine
DX: I25.119 Atherosclerotic heart disease of native coronary artery with unspecified angina pectoris (principal); Z95.1 Presence of aortocoronary bypass graft; F17.203 Nicotine dependence unspecified, with withdrawal; K21.9 Gastro-esophageal reflux disease without esophagitis; I10 Essential (primary) hypertension; T82.855A Stenosis of coronary artery stent, initial encounter; Y83.8 Other surgical procedures as the cause of abnormal reaction of the patient, or of later complication, without mention of misadventure at the time of the procedure
CPT/HCPCS: 93459; C9600

== ENCOUNTER 2017-09-13 21:37 | Emergency (ER) | payer MEDICARE, BC ==
[2017-07-29 23:01] VITALS: BMI 29.2
[~2017-09-13 21:37] MED LIST changes: +EFFIENT10 MG PO; +NEXIUM40 MG PO
[2017-09-13 22:16] LABS: BASOPHILS 0.4 % (0-2); EOSINOPHILS 3.7 % (0-7); HEMATOCRIT 43.5 % (36.0-48.0); HEMOGLOBIN 14.7 g/dL (12-16); IMMATURE GRANULOCYTES 0.3 % (0-5); LYMPHOCYTES 19.7 % (15-50); MCHC 33.8 g/dL (31.0-37.0); MCV 97.5 fL (80.0-100.0); MEAN PLATELET VOLUME 8.9 fL (7.4-10.4); MONOCYTES 9.4 % (2-11); NEUTROPHILS 66.5 % (40-80); PLATELET COUNT 273 10x3/uL (130-400); RBC 4.46 10x6/uL (4.00-5.40); RDW 13.7 % (11.5-14.5); WBC 11.2 10x3/uL (4.8-10.8)
[2017-09-13 22:20] LABS: APPEARANCE CLOUDY (CLEAR); BILIRUBIN NEGATIVE (NEGATIVE); COLOR YELLOW (YELLOW); GLUCOSE NEGATIVE (NEGATIVE); KETONE NEGATIVE (NEGATIVE); NITRITE NEGATIVE (NEGATIVE); PROTEIN NEGATIVE (NEGATIVE); SPECIFIC GRAVITY 1.015 (1.005-1.020); UROBILINOGEN NORMAL (NORMAL)
[2017-09-13 22:24] LABS: BACTERIA MODERATE /hpf (NONE SEEN)
[2017-09-13 22:25] LABS: AMORPHOUS SEDIMENT <1+ /lpf (NONE SEEN)
[2017-09-13 22:29] LABS: ALBUMIN 3.8 g/dL (3.4-5.0); ALKALINE PHOSPHATASE 109 U/L (46-116); ALT (SGPT) 30 U/L (10-68); BILIRUBIN - TOTAL 0.17 mg/dL (0.2-1.3); CALC OSMOLALITY 285 mosm/kg (275-300); CALCIUM 9.2 mg/dL (8.5-10.1); CARBON DIOXIDE 25.7 mmol/L (21.0-32.0); CHLORIDE - SERUM 106 mmol/L (98-107); CREATININE - SERUM 1.2 mg/dL (0.6-1.3); GLUCOSE 144 mg/dL (74-106); PROTEIN - SERUM 7.4 g/dL (6.4-8.2); SODIUM 141 mmol/L (136-145); UREA NITROGEN 18 mg/dL (7-18); eGFR NON AFRICAN AMERICAN 48 mL/min (90-120)
[2017-09-13 22:31] LABS: AMYLASE - SERUM 65 U/L (25-115); LIPASE 182 U/L (73-393)
[2017-09-13 22:32] LABS: TROPONIN-I < 0.017 ng/mL (0.000-0.060)
== END 2017-09-14 00:24 | disposition home or self-care (01) ==
LOC: D.ER 21:37
PROVIDERS: Family Medicine
DX: N20.1 Calculus of ureter (principal); N39.0 Urinary tract infection, site not specified; I25.10 Atherosclerotic heart disease of native coronary artery without angina pectoris